=== PATIENT | male | born 1970 | race Caucasian/White ===

== ENCOUNTER 2022-12-16 15:56 | Outpatient (REF) | payer BC, SELFPAY ==
[2022-12-16 17:06] LABS: Basophils Percent Auto 0.6 % (0-2); Eosinophils Absolute Auto 0.1 X10*3/uL (0.0-0.4); Eosinophils Percent Auto 1.3 % (0-4); Hematocrit 40.7 % (42.0-52.0); Hemoglobin 14.1 g/dl (14.0-18.0); Imm Gran Abs Auto 0.02 X10*3/uL (0.00-0.03); Imm Gran Pct Auto 0.3 % (0.0-0.4); Lymphocytes Absolute Auto 1.4 X10*3/uL (1.2-4.9); Lymphocytes Percent Auto 19.6 % (20-40); MANUAL DIFF FLAG NO; Mean Corpuscular HGB Conc 34.6 g/dl (31.0-36.0); Mean Corpuscular Hemoglobin 29.8 pg (27.0-33.0); Mean Platelet Volume 10.4 fL (9.4-12.4); Monocytes Absolute Auto 0.5 X10*3/uL (0.1-1.2); Monocytes Percent Auto 7.5 % (2-11); Neutrophils Percent Auto 70.7 % (45-73); Platelet Count 229 X10*3/uL (160-400); Red Blood Count 4.73 X10*6/uL (4.60-5.80); Red Cell Distribution Width 12.3 % (11.0-16.0); White Blood Count 7.1 X10*3/uL (4.8-10.8)
[2022-12-16 18:07] LABS: Alanine Aminotransferase 31 U/L (0-40); Albumin Level 4.8 g/dL (3.5-5.0); Alkaline Phosphatase 55 U/L (39-117); Anion Gap 14 (12-20); Aspartate Amino Transferase 24 U/L (5-37); Bilirubin Total 1.8 mg/dL (0.0-1.0); Blood Urea Nitrogen 10 mg/dL (9-16); Calcium 9.7 mg/dL (8.4-10.2); Carbon Dioxide 29 mmol/L (22-29); Chloride 101 mmol/L (96-108); Cholesterol 251 mg/dL; Estimated Glomerular Filt Rate > 60; Glucose Random 87 mg/dL (60-115); HDL Cholesterol 68 mg/dL; LDL Cholesterol Calculated 161 mg/dl; Sodium 140 mmol/L (135-145); Total Protein 7.3 g/dL (6.5-8.0); Triglycerides 112 mg/dL; Uric Acid 10.4 mg/dL (3.4-7.0)
[2022-12-16 18:35] LABS: Folate 9.8 ng/mL (> or = 4.0); Prostate Specific Antigen Scr 1.98 ng/mL (<0.05-4.0); Thyroid Stimulating Hormone 1.32 uIU/mL (0.32-4.0); Vitamin B12 340 pg/mL (200-900)
== END 2022-12-16 15:57 | disposition home or self-care (01) ==
LOC: HO.LAB 15:56
PROVIDERS: PCP Internal Medicine; Visit Provider Internal Medicine
DX: Z12.5 Encounter for screening for malignant neoplasm of prostate (principal); E78.00 Pure hypercholesterolemia, unspecified
CPT/HCPCS: 36415; 80053; 80061; 82607; 82746; 84153; 84439; 84443; 84550; 85025

== ENCOUNTER → 2022-12-24 07:29 | Outpatient (BNVA) | payer BC, SELFPAY | PROVIDERS: PCP Internal Medicine; Visit Provider Physician Assistant | DX: Z13.89 Encounter for screening for other disorder (principal) ==

== ENCOUNTER 2023-03-31 07:52 | Day surgery (SDC) | payer BC, SELFPAY ==
[2023-03-27 09:49] VITALS: BMI 29.5
--- NOTE | 2023-03-30 11:47 | HO.ANESPROP2 ---
Documented by User: Julia Luis NP 03/30/23 11:48 HPI - Anesthesia Eval Consult details Narrative: 52yo M for Colonoscopy PMFSH Active Problems Active Problems: All Active Problems (Updated 12/24/22 @ 08:15 by Laura Smalls PA-C) Total bilirubin, elevated (Acute) Multiple pigmented nevi (Acute) Colon cancer screening (Acute) Overweight (BMI 25.0-29.9) (Acute) Annual physical exam (Acute) Generalized anxiety disorder (Acute) Fatty liver (Acute) Hypercholesterolemia (Acute) Past Medical History Medical History Fatty liver Generalized anxiety disorder Hypercholesterolemia Multiple pigmented nevi Obesity (BMI 30-39.9) Family History Family History Father Diabetes Hypertension Mother Skin cancer Paternal Grandfather Myocardial infarction Daughter No problems noted. Daughter No problems noted. Brother Hodgkin's lymphoma Surgical History Surgical History History of appendectomy Social History Social History Housing: House Alcohol intake: current Alcohol intake frequency: holidays/special occasions only Patient Tobacco Use Status: Never used Tobacco e-Cigarette/Vaping Use: Never Used Second Hand Smoke Exposure: No Are you DNR?: No Advance Directives: No Advance Directives Information Provided: Yes Nutrition Risks: No Nutritional Risk Current occupational status: employed Cognitive needs: No Hearing needs: No Vision needs: No Meds Allergies Allergy/AdvReac Type Severity Reaction Status Date / Time penicillin V Allergy Unknown Rash Verified 03/31/23 08:10 Home Medications Medication Instructions Recorded Confirmed Last Taken Type cetirizine 10 mg capsule (Zyrtec) 10 mg PO DAILY 03/31/23 03/31/23 03/30/23 History Exam Exam Date and Time: March 30, 2023 1147 Height,Weight and Vital Signs: Height 6 ft 2 in Weight 104.326 kg Pertinent Lab Results Pertinent Lab Results: Laboratory Tests 12/16/22 12/16/22 16:02 16:02 WBC 7.1 Hgb 14.1 Hct 40.7 L Plt Count 229 Sodium 140 Potassium 4.0 Chloride 101 Carbon Dioxide 29 BUN 10 Creatinine 0.83 Assessment and Plan Assessment Anesthesia Assessment: Chart Reviewed Documented by User: Tanisha Pagan MD 03/31/23 08:29 HPI - Anesthesia Eval Consult details Narrative: 52yo M for Screening Colonoscopy PMFSH Active Problems Active Problems: All Active Problems (Updated 03/31/23 @ 08:15 by Tanisha Pagan MD) Total bilirubin, elevated (Acute) Multiple pigmented nevi (Acute) Colon cancer screening (Acute) Overweight (BMI 25.0-29.9) (Acute) Annual physical exam (Acute) Generalized anxiety disorder (Acute) Fatty liver (Acute) Hypercholesterolemia (Acute) Snores but never tested for DEXTER Past Medical History Medical History Fatty liver Generalized anxiety disorder Hypercholesterolemia Multiple pigmented nevi Obesity (BMI 30-39.9) Family History Family History Father Diabetes Hypertension Mother Skin cancer Paternal Grandfather Myocardial infarction Daughter No problems noted. Daughter No problems noted. Brother Hodgkin's lymphoma Family history of problems with anesthesia: No Surgical History Surgical History History of appendectomy History of Problems with Anesthesia: No Social History Social History Housing: House Alcohol intake: current Alcohol intake frequency: holidays/special occasions only Patient Tobacco Use Status: Never used Tobacco e-Cigarette/Vaping Use: Never Used Second Hand Smoke Exposure: No Are you DNR?: No Advance Directives: No Advance Directives Information Provided: Yes Nutrition Risks: No Nutritional Risk Current occupational status: employed Cognitive needs: No Hearing needs: No Vision needs: No Meds Allergies Allergy/AdvReac Type Severity Reaction Status Date / Time penicillin V Allergy Unknown Rash Verified 03/31/23 08:10 Home Medications Medication Instructions Recorded Confirmed Last Taken Type cetirizine 10 mg capsule (Zyrtec) 10 mg PO DAILY 03/31/23 03/31/23 03/30/23 History Exam Height,Weight and Vital Signs: Height 6 ft 2 in Weight 104.326 kg Vital Signs Temp Pulse Resp BP Pulse Ox O2 Del Method 03/31/23 07:57 96.9 F 62 18 146/97 H 98 Room Air Airway Mallampati Class: III TM Dist: >3cm Neck ROM: Full Loose/Missing/Broken Teeth: No (Denies broken, loose teeth. Undergoing dental surgery in [address] top left back) Heart: RRR Lungs: CTAB Assessment and Plan Assessment Anesthesia Assessment: Anesthesia Plan Discussed Final Anesthetic Review Family History of Problems with Anesthesia: No History of Problems with Anesthesia: No NPO: Yes ASA Class: II Final Preanesthetic Review: No Changes in Pt Med Stat, Meds/Allgs Chart Reviewed, Consent Obtained/Reviewed and Anes Risks/Benef Reviewed Patient Risk: Low Procedure Risk: Low Assessment/Block/Sedation in SS: Assess/Block/Sedation-SS Anesthetic Plan Anesthetic Plan: MAC: Disposition: Standard PACU
[2023-03-31 07:57] VITALS: BP 146/97; PULSE 62; RESP 18; TEMP 36.1; O2SAT 98
[2023-03-31] MEDS: Lactated Ringers 1,000 ML 100 ML IVCONT (08:19)
--- NOTE | 2023-03-31 08:56 | MHC.SHP ---
Pre-Procedural Eval Section A Date of Service: 03/31/23 Section B Chief Complaint: Encounter for screening for malignant neoplasm Relevant Family History (Specify if Yes): No Relevant Social History: None Present Medications: see Short Stay Collaborative assessment Medical History: Significant History (Fatty liver Generalized anxiety disorder Hypercholesterolemia Multiple pigmented nevi Obesity (BMI 30-39.9)) History of Previous Operations: Relevant previous surgery/procedure and date(s) (appendectomy) Allergies: Allergies Allergy/AdvReac Type Severity Reaction Status Date / Time penicillin V Allergy Unknown Rash Verified 03/31/23 08:10 Review of Systems Sugical H&P ROS: Negative: Constitution, Cardiovascular, Respiratory, Neurological, Psychiatric, Hem-Onc, Allergic/Immunologic, Gastrointestinal, Genitourinary, Musculoskeletal, Integumentary, Endocrine and Eyes/Ears/Nose/Throat Exam Surgical H&P Exam: Normal: HEENT, Normal: Heart, Normal: Lungs, Normal: Extremities, Normal: Abdomen, Normal: Skin and Normal: Neurological Plan Diagnosis/Plan: Unchanged I have reviewed the history and physical and performed a pertinent physical examination on my patient. No changes have occurred unless specified. Time Spent With Patient Time: Total time managing care of this patient today ____ minutes.
--- NOTE | 2023-03-31 08:57 | P.OP_ITS ---
Operative Note Operative Note Date of Service: 03/31/23 Narrative: Operative Information Procedure Description: Colonoscopy Indication: screening Anesthesia: MAC COLONOSCOPY Instrument: Olympus variable stiffness ADULT scope 190L Colonoscopy Monitoring: Vital signs and clinical assessment, continuous EKG monitoring, Pulse oximetry, Carbon Dioxide monitoring and blood pressure monitoring were done throughout the procedure. Colon withdrawal time was 7 minutes. Procedure: The patient was placed in the left lateral decubitis position and pre-procedure medications were administered. After a digital rectal examination of the ano-rectum, the video colonoscope was inserted into the rectum and advanced through the colon to the cecum/TI. The colonoscope was slowly withdrawn in a retrograde panoramic fashion and the colon mucosa was carefully examined including a retroflexed view of the rectum. Findings and interventions are described below. Procedure Difficulty: easy Findings: Terminal Ileum-normal Cecum:normal Ascending Colon: normal Transverse Colon -normal Descending Colon:normal Sigmoid Colon: normal Rectum: Retroflexion with small internal hemorrhoids, grade I Anorectum - normal Colon preparation: Independence Bowel Preparation Scale Right colon; 2 Transverse colon: 3 Left colon; 3 (0 = Unprepared colon segment with mucosa not seen due to solid stool that cannot be cleared. 1 = Portion of mucosa of the colon segment seen, but other areas of the colon segment not well seen due to staining, residual stool and/or opaque liquid. 2 = Minor amount of residual staining, small fragments of stool and/or opaque liquid, but mucosa of colon segment seen well. 3 = Entire mucosa of colon segment seen well with no residual staining, small fragments of stool or opaque liquid) Impression and Post Procedure Diagnosis: small internal hemorrhoids Plan: High fiber diet leaflet Avoid straining at stool, epsom salts and sitz bath, anusol supps or cream Repeat Colonoscopy in 10 years or earlier if clinically indicated Above findings were reviewed with the patient and relevant handouts were provided if indicated.
[2023-03-31 09:33] VITALS: BP 137/76; PULSE 60; RESP 16; TEMP 36.8; O2SAT 99
[2023-03-31 09:48] VITALS: BP 148/93; PULSE 56; RESP 16; TEMP 36.7; O2SAT 100
== END 2023-03-31 10:05 | disposition home or self-care (01) ==
PROVIDERS: PCP Internal Medicine; Visit Provider Internal Medicine Gastroenterology
PROC: 0DJD8ZZ Inspection of Lower Intestinal Tract, Via Natural or Artificial Opening Endoscopic (ICD-10-PCS; CPT 45378; principal; 2023-03-31 09:20)
DX: Z12.11 Encounter for screening for malignant neoplasm of colon (principal); K64.0 First degree hemorrhoids; R17 Unspecified jaundice; K76.0 Fatty (change of) liver, not elsewhere classified; E78.00 Pure hypercholesterolemia, unspecified; R79.89 Other specified abnormal findings of blood chemistry; F41.1 Generalized anxiety disorder; D22.9 Melanocytic nevi, unspecified; E66.9 Obesity, unspecified; Z68.29 Body mass index [BMI] 29.0-29.9, adult; Z79.899 Other long term (current) drug therapy; Z88.0 Allergy status to penicillin
CPT/HCPCS: 45378

== ENCOUNTER → 2023-04-15 07:30 | Outpatient (BNVA) | payer BC, SELFPAY | PROVIDERS: PCP Internal Medicine; Visit Provider Physician Assistant ==

== ENCOUNTER 2023-12-18 10:15 | Outpatient (AMB) | payer BC, SELFPAY ==
[2023-12-18 10:17] VITALS: BP 132/90; PULSE 58; O2SAT 100; BMI 29.5
--- NOTE | 2023-12-18 10:17 | MHC.PC.OV ---
Vital Signs 12/18/23 10:17 Height 6 ft 2 in Weight 230 lb 0.2 oz BMI 29.5 BP 132/90 H Blood Pressure Location Lt brachial Position Sitting Pulse 58 Pulse Source Pulse Oximeter Pulse Oximetry (%) 100 Oxygen Delivery Method Room Air Intake Visit Reasons: Annual Exam Intake Note: Patient is here today for a physical. 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 Colon test is up-to-date March 2023. [facility] Medical History (Updated 12/18/23 @ 10:46 by Joan Blake MD) Generalized anxiety disorder Hypercholesterolemia Obesity (BMI 30-39.9) Fatty liver Multiple pigmented nevi Surgical History History of appendectomy Hx of colonoscopy Family History Father Diabetes Hypertension Mother Skin cancer Paternal Grandfather Myocardial infarction Daughter No problems noted. Daughter No problems noted. Brother Hodgkin's lymphoma Social History (Updated 12/18/23 @ 10:47 by Joan Blake MD) Housing: House Alcohol intake: former Patient Tobacco Use Status: Never used Tobacco e-Cigarette/Vaping Use: Never Used Second Hand Smoke Exposure: No Current occupational status: employed Cognitive needs: No Hearing needs: No Vision needs: No Questionnaire PHQ-9 Over the last 2 weeks, how often have you been bothered by any of the following problems? 1. Little interest or pleasure in doing things: not at all 2. Feeling down, depressed, or hopeless: not at all 3. Trouble falling or staying asleep, or sleeping too much: not at all 4. Feeling tired or having little energy: not at all 5. Poor appetite or overeating: not at all 6. Feeling bad about yourself - or that you are a failure or have let yourself or your family down: not at all 7. Trouble concentrating on things, such as reading the newspaper or watching television: not at all 8. Moving or speaking so slowly that other people could have noticed. Or the opposite - being so fidgety or restless that you have been moving around a lot more than usual: not at all 9. Thoughts that you would be better off or of hurting yourself in some way: not at all Total score: 0 Depression Screening Interpretation: Negative Depression Screening Done: Yes Source: Developed by Drs. Man Clay, Shiloh Qureshi, Ford Whitney and colleagues, with an educational rere from [employer]. Thrive Questionnaire Date Thrive assessed: 12/18/23 I am a: Patient What is your living situation today?: I have a steady place to live Within the past 12 months, did the food you bought not last and you didn't have the money to get more?: Never true Within the past 12 months, did you worry whether your food would run out before you got money to buy more?: Never true Do you have trouble paying for medicines?: No Do you have trouble getting transportation to medical appointments?: No Do you have trouble paying your heating and electricity bill?: No Do you have trouble taking care of your child, family member or friend?: No Do you have trouble with day-to-day activities such as bathing, preparing meals, shopping, managing finances, etc.?: No Are you currently unemployed and looking for a job?: No Are you interested in more education?: No Please select the resources that you would like help with: None THRIVE Score: 0 AUDIT C Alcohol Use Questionnaire (AUDIT-C) 1. How often do you have a drink containing alcohol?: 2-3 times a week 2. How many drinks containing alcohol do you have on a typical day when you are drinking?: 3 or 4 3. How often do you have six or more drinks on one occasion?: Less than monthly Total Score: 5 NOAH-7 AMB Questionnaire NOAH-7 Date NOAH - 7 assessed: 12/18/23 Feeling nervous, anxious, or on edge: 0 = Not at all Not being able to stop or control worryin = Not at all Worrying too much about different things: 0 = Not at all Trouble relaxin = Not at all Being so restless that it is hard to sit still: 0 = Not at all Becoming easily annoyed or irritable: 0 = Not at all Feeling afraid as if something awful might happen: 0 = Not at all Total NOAH-7 score (0-4 normal; 5-9 mild; 10-14 moderate; 15-21 severe): 0 Source: Developed by Drs. Man Clay, Shiloh Qureshi, Ford Whitney and colleagues, with an educational rere from [employer]. Review of Systems Const Denies poor appetite and Denies weakness Eyes Denies no additional complaints ENT Reports Normal hearing present, Denies dizziness, Denies nasal congestion, Denies tinnitus and Denies sore throat Card Denies chest pain, Denies syncope, Denies rapid heart rate and Denies dyspnea Resp Denies cough and Denies dyspnea GI Denies change in stool character, Reports constipation, Denies diarrhea, Denies nausea and Denies vomiting Denies dysuria and Denies urinary frequency Neuro Reports Normal hearing present, Denies confusion, Denies dizziness, Denies syncope and Denies weakness Psych Denies confusion Physical exam (Primary Care) Vital Signs: Last Vital Signs Pulse 58 12/18/23 10:17 BP 132/90 H 12/18/23 10:17 Pulse Ox 100 12/18/23 10:17 Oxygen Delivery Method Room Air 12/18/23 10:17 BMI result Body Mass Index 29.5 Tobacco/Smoking Status: Tobacco use Status Tobacco use date assessed 12/18/23 12/18/23 10:18 Patient Tobacco Use Status Never used Tobacco 12/18/23 10:18 e-Cigarette/Vaping Use Never Used 12/18/23 10:18 PHQ-9: PHQ-9 Score PHQ-9: Total score 0 12/18/23 10:18 Depression Screening Interpretation: Negative Thrive Assessment: Date of Thrive Assessment Date Thrive assessed 12/18/23 12/18/23 10:18 Const General: No confusion Orientation/consciousness: No confusion HENMT Head: Yes normocephalic Ears: external ears normal and TM's normal bilaterally Face and sinus: Yes normal facial exam Mouth: moist mucous membranes Throat: Yes tonsils normal Eyes Conjunctivae: conjunctivae normal Pupils: Equal, round and reactive pupils present and Pupil accommodation reflex normal Direct Ophthalmoscopy: normal light reflex Neck Neck: No lymphadenopathy Thyroid: Thyroid normal Chest Chest palpation & inspection: normal inspection of the chest Resp Effort & Inspection: normal respiratory effort and no audible wheezes Auscultation: clear to auscultation bilaterally, no crackles, no wheezes and lung sounds not diminished Cardio Rate: regular rate Rhythm: regular rhythm Peripheral pulses: radial pulses present and dorsalis pedis present GI Palpation (GI): no masses Auscultation: normal bowel sounds and normoactive bowel sounds Rectal Exam - Male: Yes deferred Skin General skin exam: no rashes or lesions noted Rashes: no rashes Neuro General: No confusion Cranial nerves: Yes Equal, round and reactive pupils present and Yes Normal hearing present Cognition (Neuro): normal cognition Gait exam (Neuro): Normal gait present Motor exam (neuro): 5/5 motor strength present throughout Deep tendon reflexes (DTR's): Right brachioradialis reflex intensity grade: 2+, Left brachioradialis reflex intensity grade: 2+, Right patellar reflex intensity grade: 2+ and Left patellar reflex intensity grade: 2+ Extrem General: No edema Assessment and Plan Assessment & Plan (1) Annual physical exam: Code(s): Z00.00 - Encounter for general adult medical examination without abnormal findings (2) Overweight (BMI 25.0-29.9): Code(s): E66.3 - Overweight Plan: Diet and exercise (3) Fatty liver: Comment: Prefers to follow with PCP, reinforced lifestyle changes, good weight, cholesterol and glucose control Was never scheduled for ultrasound Code(s): K76.0 - Fatty (change of) liver, not elsewhere classified Plan: Low-fat diet and exercise (4) Hypercholesterolemia: Code(s): E78.00 - Pure hypercholesterolemia, unspecified Plan: Avoid fried foods, chicken skin, eggs, butter margarine, pastries and meat. Be it pork or beef they have a lot of cholesterol LDL goal of less than 130 and triglyceride of less than 150 (5) Hemorrhoids: Code(s): K64.9 - Unspecified hemorrhoids Plan: Avoid getting constipation (6) Blood pressure elevated without history of HTN: Code(s): R03.0 - Elevated blood-pressure reading, without diagnosis of hypertension (7) Basal cell carcinoma: Comment: L nasal area [facility] February 2024 [facility] Code(s): C44.91 - Basal cell carcinoma of skin, unspecified Orders: Orders Lipid Panel Today E78.00 - Pure hypercholesterolemia, unspecified Thyroid Stimulating Hormone Today E78.00 - Pure hypercholesterolemia, unspecified Prostate Specific Antigen Scr Today E78.00 - Pure hypercholesterolemia, unspecified Uric Acid Today E78.00 - Pure hypercholesterolemia, unspecified Complete Blood Count Auto Diff Today E78.00 - Pure hypercholesterolemia, unspecified Comprehensive Met. Panel Today E78.00 - Pure hypercholesterolemia, unspecified Free T4 (Free Thyroxine) Today E78.00 - Pure hypercholesterolemia, unspecified Vitamin B12 and Folate Today E78.00 - Pure hypercholesterolemia, unspecified Referrals Dermatology Referral C44.91 - Basal cell carcinoma of skin, unspecified Coding Level of Care Code Est Pt Prev Care 40-64y([id number]) Diagnoses Annual physical exam Z00.00 Overweight (BMI 25.0-29.9) E66.3 Fatty liver K76.0 Hypercholesterolemia E78.00 Hemorrhoids K64.9 Blood pressure elevated without history of HTN R03.0 Basal cell carcinoma C44.91
== END 2023-12-18 11:03 | disposition home or self-care (01) ==
PROVIDERS: Visit Provider Internal Medicine
DX: Z00.00 Encounter for general adult medical examination without abnormal findings (principal); E66.3 Overweight; K76.0 Fatty (change of) liver, not elsewhere classified; E78.00 Pure hypercholesterolemia, unspecified; K64.9 Unspecified hemorrhoids; R03.0 Elevated blood-pressure reading, without diagnosis of hypertension; C44.91 Basal cell carcinoma of skin, unspecified
CPT/HCPCS: 99396

== ENCOUNTER 2024-06-08 13:54 | Outpatient (AMB) | payer BC, SELFPAY ==
[2024-06-08 14:10] VITALS: BP 132/76; PULSE 65; O2SAT 98; BMI 27.5
--- NOTE | 2024-06-08 14:10 | A.OFFPC_ITS ---
Vital Signs 3 06/08/24 14:10 Height 6 ft 2 in Weight 214 lb BMI 27.5 BP 132/76 Blood Pressure Location Lt brachial Position Sitting Pulse 65 Pulse Source Pulse Oximeter Pulse Oximetry (%) 98 Oxygen Delivery Method Room Air Intake Visit Reasons: left foot gout Allergies penicillin V Allergy (Unknown, Verified 06/08/24 14:11) Rash Medication List - Last Reconciled 06/08/24 by Joan Blake MD cetirizine (Zyrtec) 10 mg PO DAILY PRN Tobacco use date assessed: 12/18/23 Dental Screening Dental Screen Date: 12/18/23 HPI left foot gout 2 HPI0 Details 53-year-old overweight male(noted 16 lb weight loss) with fatty liver hypercholesterolemia and hemorrhoids last seen in December 2023. Patient had an elevated blood pressure at that time. Patient is here for follow-up. Patient complains of having pain on the left 2nd metatarsal area states that has been having some swelling but before that has had pain on the right metatarsal area also discussed that he has been on vacation and has not been drinking enough fluids as well as in eating indiscriminately. Patient also further complains that the pain has been occurring on both knees denies any fall or trauma. [facility] Medical History (Updated 06/08/24 @ 14:33 by Joan Blake MD) Colon cancer screening Generalized anxiety disorder Hypercholesterolemia Obesity (BMI 30-39.9) Fatty liver Multiple pigmented nevi Surgical History Hx of colonoscopy History of appendectomy Family History (Updated 06/08/24 @ 14:12 by Louisa Valle [facility]) Father Diabetes Hypertension Mother Skin cancer Paternal Grandfather Myocardial infarction Daughter No problems noted. Daughter No problems noted. Brother Hodgkin's lymphoma Social History (Updated 12/18/23 @ 10:47 by Joan Blake MD) Housing: House Alcohol intake: former Patient Tobacco Use Status: Never used Tobacco Tobacco use type: Cigarette e-Cigarette/Vaping Use: Never Used Second Hand Smoke Exposure: No service: No Current occupational status: employed Current occupational exposures/hazards: No Cognitive needs: No Hearing needs: No Vision needs: No Questionnaire PHQ-9 Over the last 2 weeks, how often have you been bothered by any of the following problems? 1. Little interest or pleasure in doing things: not at all 2. Feeling down, depressed, or hopeless: not at all 3. Trouble falling or staying asleep, or sleeping too much: not at all 4. Feeling tired or having little energy: not at all 5. Poor appetite or overeating: not at all 6. Feeling bad about yourself - or that you are a failure or have let yourself or your family down: not at all 7. Trouble concentrating on things, such as reading the newspaper or watching television: not at all 8. Moving or speaking so slowly that other people could have noticed. Or the opposite - being so fidgety or restless that you have been moving around a lot more than usual: not at all 9. Thoughts that you would be better off or of hurting yourself in some way: not at all Total score: 0 Depression Screening Interpretation: Negative Depression Screening Done: Yes Source: Developed by Drs. Man Clay, Shiloh Qureshi, Ford Whitney and colleagues, with an educational rere from [employer]. Thrive Questionnaire Date Thrive assessed: 12/18/23 AUDIT C Alcohol Use Questionnaire (AUDIT-C) 1. How often do you have a drink containing alcohol?: 2-3 times a week 2. How many drinks containing alcohol do you have on a typical day when you are drinking?: 3 or 4 3. How often do you have six or more drinks on one occasion?: Less than monthly Total Score: 5 NOAH-7 AMB Questionnaire NOAH-7 Date NOAH - 7 assessed: 12/18/23 Source: Developed by Drs. Man Clay, Shiloh Qureshi, Ford Whitney and colleagues, with an educational rere from [employer]. Physical exam (Primary Care) Vital Signs: Last Vital Signs Pulse 65 06/08/24 14:10 BP 132/76 06/08/24 14:10 Pulse Ox 98 06/08/24 14:10 Oxygen Delivery Method Room Air 06/08/24 14:10 BMI result Body Mass Index 27.5 Tobacco/Smoking Status: Tobacco use Status Tobacco use date assessed 12/18/23 06/08/24 14:12 Patient Tobacco Use Status Never used Tobacco 06/08/24 14:12 Tobacco use type Cigarette 06/08/24 14:12 e-Cigarette/Vaping Use Never Used 06/08/24 14:12 PHQ-9: PHQ-9 Score PHQ-9: Total score 0 06/08/24 14:15 Depression Screening Interpretation: Negative Thrive Assessment: Date of Thrive Assessment Date Thrive assessed 12/18/23 06/08/24 14:12 Const General: alert; No acute distress Eyes Conjunctivae: conjunctivae normal Resp Auscultation: clear to auscultation bilaterally Cardio Rate: regular rate Rhythm: regular rhythm GI Inspection: Yes normal to inspection Extrem General: Yes normal to inspection and No edema Ankle/foot/toe images: 2 1. States tenderness but did not appreciate any swelling or redness. Assessment and Plan Assessment & Plan (1) Elevated uric acid in blood: Code(s): E79.0 - Hyperuricemia without signs of inflammatory arthritis and tophaceous disease Plan: Low purine diet and keep well hydrated (2) Fatty liver: Comment: Prefers to follow with PCP, reinforced lifestyle changes, good weight, cholesterol and glucose control Was never scheduled for ultrasound Code(s): K76.0 - Fatty (change of) liver, not elsewhere classified Plan: Low-fat diet and exercise (3) Hypercholesterolemia: Code(s): E78.00 - Pure hypercholesterolemia, unspecified Plan: Avoid fried foods, chicken skin, eggs, butter margarine, pastries and meat. Be it pork or beef they have a lot of cholesterol LDL goal of less than 130 and triglyceride of less than 150 (4) Overweight (BMI 25.0-29.9): Code(s): E66.3 - Overweight Plan: Diet and exercise (5) Blood pressure elevated without history of HTN: Code(s): R03.0 - Elevated blood-pressure reading, without diagnosis of hypertension Plan: Resolved (6) Foot pain, bilateral: Code(s): M79.671 - Pain in right foot; M79.672 - Pain in left foot Plan: Explained to the patient that the behavior of his foot pain is not consistent with gout problem. Gout is usually on the monoarticular meaning 1 joint inflammation. Will still treat with anti-inflammatory and give colchicine for prevention. But would like/advised patient to get x-rays of both feet. Discussed about keeping well hydrated as well as avoid indiscriminate eating. Low purine diet Orders: Orders 2 XR foot LT 2V Today M79.671 - Pain in right foot, M79.672 - Pain in left foot XR foot RT 2V Today M79.671 - Pain in right foot, M79.672 - Pain in left foot Medications: New 2 colchicine 1.2 mg on the first sign of pain orally PRN; 20 tabs 0RF gout attack M79.671 - Pain in right foot, M79.672 - Pain in left foot prednisone 4 tabs QD x 2 days then 3 tabs QD x 2 days then 2 tabs Qd x 2 days then 1 tab QD x 2 days PO daily; 20 tabs 0RF J45.909 - Unspecified asthma, uncomplicated, M79.671 - Pain in right foot, M79.672 - Pain in left foot Coding Level of Care Code Est Pt Level 4 (72017) Diagnoses Elevated uric acid in blood E79.0 Fatty liver K76.0 Hypercholesterolemia E78.00 Overweight (BMI 25.0-29.9) E66.3 Blood pressure elevated without history of HTN R03.0 Foot pain, bilateral M79.671; M79.672
== END 2024-06-08 15:19 | disposition home or self-care (01) ==
PROVIDERS: PCP Internal Medicine; Visit Provider Internal Medicine
DX: E79.0 Hyperuricemia without signs of inflammatory arthritis and tophaceous disease (principal); K76.0 Fatty (change of) liver, not elsewhere classified; E78.00 Pure hypercholesterolemia, unspecified; E66.3 Overweight; R03.0 Elevated blood-pressure reading, without diagnosis of hypertension; M79.671 Pain in right foot; M79.672 Pain in left foot
CPT/HCPCS: 99214

== ENCOUNTER 2024-07-29 14:22 | Outpatient (AMB) | payer BC, SELFPAY ==
[2024-07-29 14:24] VITALS: BP 140/72; PULSE 62; O2SAT 99; BMI 29.0
--- NOTE | 2024-07-29 14:24 | A.OFFPC_ITS ---
Vital Signs 07/29/24 14:24 Height 6 ft 2 in Weight 226 lb BMI 29.0 BP 140/72 H Blood Pressure Location Lt brachial Position Sitting Pulse 62 Pulse Source Pulse Oximeter Pulse Oximetry (%) 99 Oxygen Delivery Method Room Air Intake Visit Reasons: back pain-see comm Intake Note: pt c/o of right leg pain and back pain X4 days Health Care Manager Required: No Allergies penicillin V Allergy (Unknown, Verified 07/29/24 14:24) Rash Medication List - Last Reconciled 07/29/24 by Lizzette Rose PA-C cetirizine (Zyrtec) 10 mg PO DAILY PRN colchicine 1.2 mg on the first sign of pain orally PRN; Tobacco use date assessed: 12/18/23 Dental Screening Dental Screen Date: 12/18/23 HPI back pain-see comm HPI Details 53 year old overweight male with fatty l iver disease, hypercholesterolemia and hemorrhoids last seen by Dr. Blake coming in for acute problem. Patient states his back pain started last week when he was twisting and reaching for something when he felt a sharp pain in his back. Due to surgery later that day he was unable to sleep lying flat in slept in a recliner which further exacerbated his back pain. Initially he had right-sided low back pain that radiated down the right leg with numbness and tingling. The back pain and numbness and tingling has slightly improved throughout the week and improves with heat and ibuprofen. [facility] Medical History (Updated 07/29/24 @ 15:39 by Lizzette Rose PA-C) Colon cancer screening Generalized anxiety disorder Hypercholesterolemia Obesity (BMI 30-39.9) Fatty liver Multiple pigmented nevi Surgical History Hx of colonoscopy History of appendectomy Family History (Updated 06/08/24 @ 14:12 by Louisa Valle CMA) Father Diabetes Hypertension Mother Skin cancer Paternal Grandfather Myocardial infarction Daughter No problems noted. Daughter No problems noted. Brother Hodgkin's lymphoma Social History (Updated 12/18/23 @ 10:47 by Joan Blake MD) Housing: House Alcohol intake: former Patient Tobacco Use Status: Never used Tobacco Tobacco use type: Cigarette e-Cigarette/Vaping Use: Never Used Second Hand Smoke Exposure: No service: No Current occupational status: employed Current occupational exposures/hazards: No Cognitive needs: No Hearing needs: No Vision needs: No Questionnaire Thrive Questionnaire Date Thrive assessed: 12/18/23 Are you currently unemployed and looking for a job?: No AUDIT C Alcohol Use Questionnaire (AUDIT-C) 2. How many drinks containing alcohol do you have on a typical day when you are drinking?: 1 or 2 3. How often do you have six or more drinks on one occasion?: Never Total Score: 0 NOAH-7 AMB Questionnaire NOAH-7 Date NOAH - 7 assessed: 12/18/23 Source: Developed by Drs. Man Clay, Shiloh Qureshi, Ford Whitney and colleagues, with an educational rere from [employer]. Review of Systems Const Denies body aches, Denies chills and Denies fever(s) Eyes Reports no additional complaints ENT Reports no additional complaints Card Denies chest pain, Denies leg edema, Denies lightheadedness and Denies dyspnea Resp Denies dyspnea Details: No involuntary loss of urine Musc Reports abnormal gait, Reports back pain and Reports radiating pain into limb (Right lower extremity) Skin/Breast Reports system reviewed and no additional complaints, except as documented Neuro Reports as per HPI and Reports abnormal gait Physical exam (Primary Care) Vital Signs: Last Vital Signs Pulse 62 07/29/24 14:24 BP 140/72 H 07/29/24 14:24 Pulse Ox 99 07/29/24 14:24 Oxygen Delivery Method Room Air 07/29/24 14:24 BMI result Body Mass Index 29.0 Tobacco/Smoking Status: Tobacco use Status Tobacco use date assessed 12/18/23 07/29/24 14:24 Patient Tobacco Use Status Never used Tobacco 07/29/24 14:24 Tobacco use type Cigarette 07/29/24 14:24 e-Cigarette/Vaping Use Never Used 07/29/24 14:24 Thrive Assessment: Date of Thrive Assessment Date Thrive assessed 12/18/23 07/29/24 14:24 Const General: cooperative, healthy appearing, comfortable and no acute distress Orientation/consciousness: patient oriented x3 HENMT Head: Yes normocephalic Ears: hearing grossly normal bilaterally General nose exam: Normal external nose present Eyes General: appearance normal, both eyes and all related structures Conjunctivae: conjunctivae normal Neck Neck: Yes full ROM and Yes no lymphadenopathy Resp Effort & Inspection: normal respiratory effort Auscultation: clear to auscultation bilaterally, no crackles, no rales, no rhonchi and no wheezes Cardio Rate: regular rate Rhythm: regular rhythm Back/Spine/Pelvis Other: No tenderness to palpation over entire spine. Pain to palpation over right paraspinal muscles. Skin General skin exam: no rashes or lesions noted Neuro General: patient oriented x3 Gait exam (Neuro): Normal gait present Extrem Other: Strength, sensation, pulses intact in bilateral lower extremities General: Yes normal to inspection, Yes full ROM and No edema Psych Affect: normal affect Attitude: cooperative Insight: Good insight present (Psych) Judgement: Good judgement present (Psych) Coding Level of Care Code Est Pt Level 3 (65143) Diagnoses Low back strain S39.012A Assessment & Plan Assessment & Plan (1) Low back strain: Code(s): S39.012A - Strain of muscle, fascia and tendon of lower back, initial encounter Category: Medical Plan: History and exam most consistent with low back strain. Advised to do gentle stretching and use Tylenol and ibuprofen as needed as well as heating 20 minutes on 20 minutes off. If back pain persists or numbness and tingling worsens can consider lumbar spine x-ray and physical therapy. Given muscle relaxer for nighttime pain. Plan This note was constructed using voice recognition software. While every effort has been made to ensure accuracy and diamond saw operator, still areas may have been included sometimes these areas may affect the content or meeting of the given symptoms. Total time spent caring for the patient today was 30 minutes. This includes time spent before the visit reviewing the chart, time spent during the visit, and time spent after the visit and documentation. Medications: New cyclobenzaprine 5 mg PO BEDTIME PRN 14 tabs 0RF muscle spasm
== END 2024-07-29 15:01 | disposition home or self-care (01) ==
PROVIDERS: PCP Internal Medicine
DX: S39.012A Strain of muscle, fascia and tendon of lower back, initial encounter (principal)

== ENCOUNTER → 2024-07-29 14:22 | Outpatient (BNVA) | payer BC, SELFPAY | PROVIDERS: PCP Internal Medicine ==

== ENCOUNTER 2024-12-19 08:56 | Outpatient (AMB) | payer BC, SELFPAY ==
[2024-12-19 09:00] VITALS: BP 128/68; PULSE 66; O2SAT 98; BMI 29.7
--- NOTE | 2024-12-19 09:00 | A.OFFPC_ITS ---
Vital Signs 12/19/24 09:00 Height 6 ft 2 in Weight 231 lb BMI 29.7 BP 128/68 Blood Pressure Location Lt brachial Position Sitting Pulse 66 Pulse Source Pulse Oximeter Pulse Oximetry (%) 98 Oxygen Delivery Method Room Air Intake Visit Reasons: annual exam Allergies penicillin V Allergy (Unknown, Verified 12/19/24 09:01) Rash Medication List - Last Reconciled 12/19/24 by Joan Blake MD cetirizine (Zyrtec) 10 mg PO DAILY PRN Tobacco use date assessed: 12/19/24 Dental Screening Dental Screen Date: 12/19/24 Did you have a dental visit in the last 12 months?: Yes Did you have a dental problem in the last 6 months where you did not have access to dental care?: No Was dental information given to patient?: Patient has dentist HPI annual exam HPI Details History of Present Illness The patient is a 54-year-old male presenting for a wellness visit. He is known to have hypercholesterolemia, noted in past laboratory results as elevated cholesterol since November 2022. The patient has not reported current medication or interventions for hypercholesterolemia; lifestyle modifications, such as a low-fat diet and exercise, are advised. He has hepatic steatosis, although specific details related to its treatment or symptoms during this visit were not discussed. The patient is also living with generalized anxiety disorder, albeit no current treatment or management plan was detailed in the conversation. His overall wellness was discussed with emphasis on lifestyle changes to improve health outcomes, and recent preventative procedures, such as a colonoscopy completed in March 2023, show ongoing engagement with health management. Health Maintenance - Discussion of low-fat diet for cholest jessi management - Exercise for weight management and cho lesterol reduction - Request for updated blood work to eval uate cholesterol levels Social History - No specific social history was discuss ed in the conversation. Review of Systems Physical Exam General: Cooperative, overweight, healthy appearing, comfortable, no acute dist ress and well developed Orientation: Patient oriented x3 Limitations: No limitations Head: Normal to inspection Ears: Hearing grossly normal bilaterally Nose: Normal external nose present Face and sinus: Normal facial exam Eyes: Appearance normal, both eyes and all related structures Neck: Normal visual inspection and Yes full ROM Respiratory: Normal respiratory effort and able to speak in complete sentences. Clear to auscultation bilaterally Cardiovascular: Regular rate and rhythm. Normal S1 and S2 GI: Normal to inspection. Soft to palpation and nontender Skin: No rashes or lesions noted Neuro: Patient oriented x3 Extremities: Normal to inspection Results - Labs: November 2022 blood work showed elevated cholesterol and uric acid - Procedures: Colonoscopy completed in J 2022 Plan The visit primarily addressed hypercholesterolemia with an emphasis on lifestyle adjustments including a structured low-fat diet and regular exercise plan. Additional blood work will be requested to re-evaluate cholesterol levels and monitor other health indicators. While hepatic steatosis and generalized anxiety disorder were acknowledged, no specific management strategies were discussed. Reinforcement of lifestyle changes aimed at reducing cardiovascular risk was the central theme of the management plan. Patient was informed and verbally consented to the use of an ambient scribe for clinic note documentation during this visit. Discussion Notes The conversation centered on maintaining and improving health through non- pharmacological interventions. I discussed with the patient the importance of a low-fat diet and regular physical activity to better manage his cholesterol levels and overall health. Further diagnostic laboratory assessments were highlighted to monitor his condition. Hepatic steatosis and generalized anxiety disorder were acknowledged as historical conditions without specific new interventions proposed during this visit. I emphasized the significance of lifestyle risk reduction strategies and scheduled an updated blood work to inform further health decisions. Patient Instructions - Follow a low-fat diet to help manage c holesterol - Engage in regular physical activity fo r weight management and overall health improvement - [facility] History (Updated 12/19/24 @ 09:19 by Joan Blake MD) Colon cancer screening Generalized anxiety disorder Hypercholesterolemia Obesity (BMI 30-39.9) Fatty liver Multiple pigmented nevi Surgical History Hx of colonoscopy History of appendectomy Family History (Updated 06/08/24 @ 14:12 by Louisa Valle [facility]) Father Diabetes Hypertension Mother Skin cancer Paternal Grandfather Myocardial infarction Daughter No problems noted. Daughter No problems noted. Brother Hodgkin's lymphoma Social History (Updated 12/18/23 @ 10:47 by Joan Blake MD) Housing: House Alcohol intake: former Patient Tobacco Use Status: Never used Tobacco Tobacco use type: Cigarette e-Cigarette/Vaping Use: Never Used Second Hand Smoke Exposure: No service: No Current occupational status: employed Current occupational exposures/hazards: No Cognitive needs: No Hearing needs: No Vision needs: No Questionnaire PHQ-9 Over the last 2 weeks, how often have you been bothered by any of the following problems? 1. Little interest or pleasure in doing things: not at all 2. Feeling down, depressed, or hopeless: not at all 3. Trouble falling or staying asleep, or sleeping too much: not at all 4. Feeling tired or having little energy: not at all 5. Poor appetite or overeating: not at all 6. Feeling bad about yourself - or that you are a failure or have let yourself or your family down: not at all 7. Trouble concentrating on things, such as reading the newspaper or watching television: not at all 8. Moving or speaking so slowly that other people could have noticed. Or the opposite - being so fidgety or restless that you have been moving around a lot more than usual: not at all 9. Thoughts that you would be better off or of hurting yourself in some way: not at all Total score: 0 Depression Screening Interpretation: Negative Depression Screening Done: Yes 67342 - PHQ-9 Billing: Yes Source: Developed by Drs. Man Clay, Shiloh Qureshi, Ford Whitney and colleagues, with an educational rere from [employer]. Thrive Questionnaire Date Thrive assessed: 12/19/24 I am a: Patient What is your living situation today?: I have a steady place to live Within the past 12 months, did the food you bought not last and you didn't have the money to get more?: I choose not to answer this question Within the past 12 months, did you worry whether your food would run out before you got money to buy more?: I choose not to answer this question Do you have trouble paying for medicines?: No Do you have trouble getting transportation to medical appointments?: No Do you have trouble paying your heating and electricity bill?: No Do you have trouble taking care of your child, family member or friend?: No Do you have trouble with day-to-day activities such as bathing, preparing meals, shopping, managing finances, etc.?: No Are you currently unemployed and looking for a job?: No Are you interested in more education?: No Please select the resources that you would like help with: None Currently or been in a relationship where the following occur: I choose not to answer THRIVE Score: 0 AUDIT C Alcohol Use Questionnaire (AUDIT-C) 1. How often do you have a drink containing alcohol?: Never Total Score: 0 NOAH-7 AMB Questionnaire NOAH-7 Date NOAH - 7 assessed: 12/19/24 Feeling nervous, anxious, or on edge: 0 = Not at all Not being able to stop or control worryin = Not at all Worrying too much about different things: 0 = Not at all Trouble relaxin = Not at all Being so restless that it is hard to sit still: 0 = Not at all Becoming easily annoyed or irritable: 0 = Not at all Feeling afraid as if something awful might happen: 0 = Not at all Total NOAH-7 score (0-4 normal; 5-9 mild; 10-14 moderate; 15-21 severe): 0 Source: Developed by Drs. Man Clay, Shlioh Qureshi, Ford Whitney and colleagues, with an educational rere from [employer]. NOAH-7 Assessment Billing NOAH-7 Assessment Tool: NOAH-7 Assessment 29613 Review of Systems Const Denies poor appetite and Denies weakness Eyes Denies no additional complaints ENT Reports Normal hearing present, Denies dizziness, Denies nasal congestion, Denies tinnitus and Denies sore throat Card Denies chest pain, Denies syncope, Denies rapid heart rate and Denies dyspnea Resp Denies cough and Denies dyspnea GI Denies change in stool character, Reports constipation, Denies diarrhea, Denies nausea and Denies vomiting Denies dysuria and Denies urinary frequency Neuro Reports Normal hearing present, Denies confusion, Denies dizziness, Denies syncope and Denies weakness Psych Denies confusion Physical exam (Primary Care) Vital Signs: Last Vital Signs Pulse 66 12/19/24 09:00 BP 128/68 12/19/24 09:00 Pulse Ox 98 12/19/24 09:00 Oxygen Delivery Method Room Air 12/19/24 09:00 BMI result Body Mass Index 29.7 Tobacco/Smoking Status: Tobacco use Status Tobacco use date assessed 12/19/24 12/19/24 09:02 Patient Tobacco Use Status Never used Tobacco 12/19/24 09:02 Tobacco use type Cigarette 12/19/24 09:02 e-Cigarette/Vaping Use Never Used 12/19/24 09:02 PHQ-9: PHQ-9 Score PHQ-9: Total score 0 12/19/24 09:02 Depression Screening Interpretation: Negative Thrive Assessment: Date of Thrive Assessment Date Thrive assessed 12/19/24 12/19/24 09:02 Currently or been in a relationship where the following occur: I choose not to answer Const General: No confusion Orientation/consciousness: No confusion HENMT Head: Yes normocephalic Ears: external ears normal and TM's normal bilaterally Face and sinus: Yes normal facial exam Mouth: moist mucous membranes Throat: Yes tonsils normal Eyes Conjunctivae: conjunctivae normal Pupils: Equal, round and reactive pupils present and Pupil accommodation reflex normal Direct Ophthalmoscopy: normal light reflex Neck Neck: No lymphadenopathy Thyroid: Thyroid normal Chest Chest palpation & inspection: normal inspection of the chest Resp Effort & Inspection: normal respiratory effort and no audible wheezes Auscultation: clear to auscultation bilaterally, no crackles, no wheezes and lung sounds not diminished Cardio Rate: regular rate Rhythm: regular rhythm Peripheral pulses: radial pulses present and dorsalis pedis present GI Other: guaaic negative prostate negative Palpation (GI): no masses Auscultation: normal bowel sounds and normoactive bowel sounds Male General Exam: Yes normal external exam Skin General skin exam: no rashes or lesions noted Rashes: no rashes Neuro General: No confusion Cranial nerves: Yes Equal, round and reactive pupils present and Yes Normal hearing present Cognition (Neuro): normal cognition Gait exam (Neuro): Normal gait present Motor exam (neuro): 5/5 motor strength present throughout Deep tendon reflexes (DTR's): Right brachioradialis reflex intensity grade: 2+, Left brachioradialis reflex intensity grade: 2+, Right patellar reflex intensity grade: 2+ and Left patellar reflex intensity grade: 2+ Extrem General: No edema Coding Level of Care Code Est Pt Prev Care 40-64y(29110) Diagnoses Annual physical exam Z00.00 Hypercholesterolemia E78.00 Fatty liver K76.0 Overweight (BMI 25.0-29.9) E66.3 Additional Codes NOAH-7 Assessment Billing - NOAH-7 Assessment Tool: NOAH-7 Assessment 23108 ([id number]) PHQ-9 - 53120 - PHQ-9 Billing: Yes ([id number]) Assessment & Plan Assessment & Plan (1) Annual physical exam: Code(s): Z00.00 - Encounter for general adult medical examination without abnormal findings Category: Medical Plan: Patient is advised to eat healthy, keep well hydrated, keep active and have adequate sleep. (2) Hypercholesterolemia: Code(s): E78.00 - Pure hypercholesterolemia, unspecified Category: Medical Plan: Avoid fried foods, chicken skin, eggs, butter margarine, pastries and meat. Be it pork or beef they have a lot of cholesterol will request for a new blood work (3) Fatty liver: Comment: Prefers to follow with PCP, reinforced lifestyle changes, good weight, cholesterol and glucose control Was never scheduled for ultrasound Code(s): K76.0 - Fatty (change of) liver, not elsewhere classified Category: Medical Plan: Low-fat diet and exercise diet and exercise (4) Overweight (BMI 25.0-29.9): Code(s): E66.3 - Overweight Category: Medical Plan History of Present Illness The patient is a 54-year-old male presenting for a wellness visit. He is known to have hypercholesterolemia, noted in past laboratory results as elevated cholesterol since November 2022. The patient has not reported current medication or interventions for hypercholesterolemia; lifestyle modifications, such as a low-fat diet and exercise, are advised. He has hepatic steatosis, although specific details related to its treatment or symptoms during this visit were not discussed. The patient is also living with generalized anxiety disorder, albeit no current treatment or management plan was detailed in the conversation. His overall wellness was discussed with emphasis on lifestyle changes to improve health outcomes, and recent preventative procedures, such as a colonoscopy completed in March 2023, show ongoing engagement with health management. Health Maintenance - Discussion of low-fat diet for cholesterol management - Exercise for weight management and cholesterol reduction - Request for updated blood work to evaluate cholesterol levels Social History - No specific social history was discussed in the conversation. Review of Systems Physical Exam General: Cooperative, overweight, healthy appearing, comfortable, no acute distress and well developed Orientation: Patient oriented x3 Limitations: No limitations Head: Normal to inspection Ears: Hearing grossly normal bilaterally Nose: Normal external nose present Face and sinus: Normal facial exam Eyes: Appearance normal, both eyes and all related structures Neck: Normal visual inspection and Yes full ROM Respiratory: Normal respiratory effort and able to speak in complete sentences. Clear to auscultation bilaterally Cardiovascular: Regular rate and rhythm. Normal S1 and S2 GI: Normal to inspection. Soft to palpation and nontender Skin: No rashes or lesions noted Neuro: Patient oriented x3 Extremities: Normal to inspection Results - Labs: November 2022 blood work showed elevated cholesterol and uric acid - Procedures: Colonoscopy completed in March 2023 Plan The visit primarily addressed hypercholesterolemia with an emphasis on lifestyle adjustments including a structured low-fat diet and regular exercise plan. Additional blood work will be requested to re-evaluate cholesterol levels and monitor other health indicators. While hepatic steatosis and generalized anxiety disorder were acknowledged, no specific management strategies were discussed. Reinforcement of lifestyle changes aimed at reducing cardiovascular risk was the central theme of the management plan. Patient was informed and verbally consented to the use of an ambient scribe for clinic note documentation during this visit. Discussion Notes The conversation centered on maintaining and improving health through non- pharmacological interventions. I discussed with the patient the importance of a low-fat diet and regular physical activity to better manage his cholesterol levels and overall health. Further diagnostic laboratory assessments were highlighted to monitor his condition. Hepatic steatosis and generalized anxiety disorder were acknowledged as historical conditions without specific new interventions proposed during this visit. I emphasized the significance of lifestyle risk reduction strategies and scheduled an updated blood work to inform further health decisions. Patient Instructions - Follow a low-fat diet to help manage cholesterol - Engage in regular physical activity for weight management and overall health improvement - Prepare for upcoming blood work as scheduled Orders: Orders Comprehensive Met. Panel Today E78.00 - Pure hypercholesterolemia, unspecified Free T4 (Free Thyroxine) Today E78.00 - Pure hypercholesterolemia, unspecified Thyroid Stimulating Hormone Today E78.00 - Pure hypercholesterolemia, unspecified Lipid Panel Today E78.00 - Pure hypercholesterolemia, unspecified Vitamin B12 and Folate Today E78.00 - Pure hypercholesterolemia, unspecified Uric Acid Today E78.00 - Pure hypercholesterolemia, unspecified Complete Blood Count Auto Diff Today E78.00 - Pure hypercholesterolemia, unspecified Prostate Specific Antigen Scr Today E78.00 - Pure hypercholesterolemia, unspecified
== END 2024-12-19 09:40 | disposition home or self-care (01) ==
PROVIDERS: PCP Internal Medicine; Visit Provider Internal Medicine
DX: Z00.00 Encounter for general adult medical examination without abnormal findings (principal); E78.00 Pure hypercholesterolemia, unspecified; K76.0 Fatty (change of) liver, not elsewhere classified; E66.3 Overweight

== ENCOUNTER → 2024-12-19 08:56 | Outpatient (BNVA) | payer BC, SELFPAY | PROVIDERS: PCP Internal Medicine; Visit Provider Internal Medicine | DX: Z00.00 Encounter for general adult medical examination without abnormal findings (principal); E78.00 Pure hypercholesterolemia, unspecified; K76.0 Fatty (change of) liver, not elsewhere classified; E66.3 Overweight; Z68.29 Body mass index [BMI] 29.0-29.9, adult | CPT/HCPCS: 96127 ==

== ENCOUNTER 2024-12-20 08:13 | Outpatient (REF) | payer BC, SELFPAY ==
[2024-12-20 11:19] LABS: MANUAL DIFF FLAG NO
[2024-12-20 11:32] LABS: Basophils Percent Auto 0.7 % (0-2); Eosinophils Absolute Auto 0.2 X10*3/uL (0.0-0.4); Eosinophils Percent Auto 2.9 % (0-4); Hematocrit 42.8 % (42.0-52.0); Hemoglobin 14.8 g/dl (14.0-18.0); Imm Gran Abs Auto 0.02 X10*3/uL (0.00-0.03); Imm Gran Pct Auto 0.3 % (0.0-0.4); Lymphocytes Absolute Auto 1.9 X10*3/uL (1.2-4.9); Lymphocytes Percent Auto 32.6 % (20-40); Mean Corpuscular HGB Conc 34.6 g/dl (31.0-36.0); Mean Corpuscular Hemoglobin 29.1 pg (27.0-33.0); Mean Corpuscular Volume 84.3 fL (80.0-98.0); Mean Platelet Volume 10.1 fL (9.4-12.4); Monocytes Absolute Auto 0.5 X10*3/uL (0.1-1.2); Monocytes Percent Auto 8.1 % (2-11); Neutrophils Absolute Auto 3.3 x10*3/uL (2.0-8.3); Neutrophils Percent Auto 55.4 % (45-73); Platelet Count 265 X10*3/uL (160-400); Red Blood Count 5.08 X10*6/uL (4.60-5.80); Red Cell Distribution Width 12.3 % (11.0-16.0)
[2024-12-20 12:24] LABS: Folate 10.1 ng/mL (> or = 4.0); Prostate Specific Antigen Scr 1.95 ng/mL (<0.05-4.0); Vitamin B12 336 pg/mL (200-900)
[2024-12-20 12:28] LABS: Alanine Aminotransferase 41 U/L (0-40); Albumin Level 4.4 g/dL (3.5-5.0); Alkaline Phosphatase 58 U/L (39-117); Anion Gap 11 (12-20); Aspartate Amino Transferase 29 U/L (5-37); Bilirubin Total 1.2 mg/dL (0.0-1.0); Blood Urea Nitrogen 9 mg/dL (9-16); Carbon Dioxide 28 mmol/L (22-29); Chloride 105 mmol/L (96-108); Cholesterol 248 mg/dL (<200); Estimated Glomerular Filt Rate > 60; Glucose Random 102 mg/dL (60-115); HDL Cholesterol 56 mg/dL (>40); LDL Cholesterol Calculated 151 mg/dL (<100); Potassium 4.3 mmol/L (3.3-5.1); Sodium 140 mmol/L (135-145); Total Protein 7.2 g/dL (6.5-8.0); Triglycerides 209 mg/dL (<150)
[2024-12-20 12:48] LABS: Uric Acid 7.8 mg/dL (3.4-7.0)
[2024-12-20 12:52] LABS: Free T4 (Free Thyroxine) 1.16 ng/dL (0.71-1.85)
== END 2024-12-20 08:14 | disposition home or self-care (01) ==
LOC: HO.WFDLDS 08:13
PROVIDERS: Visit Provider Internal Medicine
DX: E78.00 Pure hypercholesterolemia, unspecified (principal); Z12.5 Encounter for screening for malignant neoplasm of prostate
CPT/HCPCS: 36415; 80053; 80061; 82607; 82746; 84153; 84439; 84443; 84550; 85025

== ENCOUNTER 2025-01-23 08:48 | Outpatient (REF) | payer BC, SELFPAY ==
--- NOTE | ~2025-01-23 | US_ITS ---
CLINICAL HISTORY: R79.89 - ELEVATED LIVER FUNCTION TESTS US abdomen complete Comparison: None Findings: The visualized pancreas is normal. The aorta and inferior vena cava are normal caliber. The liver is normal in size and mildly increased in echotexture. There is no intrahepatic bile duct dilatation. The common duct is 4 mm in diameter. The gallbladder is normal. There is no sonographic Gonzalez sign. The main portal vein is antegrade. The right kidney is 10.9 cm in length. The left kidney is 11.9 cm in length. The spleen is normal. No ascites. IMPRESSION: Mild hepatic steatosis. No acute process. This document has been electronically signed by: Romain Finney MD on 01/24/2025 10:54:07
[2025-01-23 11:45] LABS: HBc Num1 1.16 S/CO (0.00-0.79); HBsAGNum1 0.35 S/CO (0.00-0.99); Hepatitis B Surface Antigen Negative (Negative); ~HepC Num1 0.19 S/CO (0.00-0.79); ~Hepatitis B Surface Antibody NONREACTIVE (Nonreactive); ~Hepatitis C Antibody Nonreactive (Nonreactive)
[2025-01-23 14:08] LABS: HBc Num2 0.06 S/CO; HBc Num3 0.06 S/CO; Hepatitis B Core Antibody Nonreactive (Nonreactive)
== END 2025-01-23 08:49 | disposition home or self-care (01) ==
LOC: HO.US 08:48
PROVIDERS: PCP Internal Medicine; Visit Provider Internal Medicine
DX: R79.89 Other specified abnormal findings of blood chemistry (principal); K76.0 Fatty (change of) liver, not elsewhere classified
CPT/HCPCS: 36415; 76700; 86704; 86706; 86803; 87340

== ENCOUNTER → 2025-01-23 08:50 | Outpatient (BNV) | payer BC, SELFPAY | PROVIDERS: PCP Internal Medicine; Visit Provider Radiology Vascular & Interventional Radiology | DX: R74.01 Elevation of levels of liver transaminase levels (principal); K76.0 Fatty (change of) liver, not elsewhere classified | CPT/HCPCS: 76700 ==